=== PATIENT | female | born 1975 | race Caucasian/White ===

== ENCOUNTER → 2018-04-18 | Outpatient (CLI) | payer OTHER, MEDICARE ==
[~2018-04-18] MED LIST: ACETAMINOPHEN-1 EAC1 PO; BENTYL20 MG PO; CIPRO HC OTIC S10 ML OTIC; CIPROFLOXACIN500 M1 PO; ESTRACE2 MG PO; HYDROCODON-ACE1 EAC7 PO; LEVSIN; OPIUM10 MG/1 ML PO; PREVALITE PACKE1 PKT; QUESTRAN; ULTRAM 50MG TAB50 MG PO; VICODIN 5-5001 EACH PO; VITAMIN; WELCHOL 625 MG625 MG PO; ZOFRAN 4 MG ORAL4 M1 DIS; ZPAK PO; [UNRECOGNIZED DRUG - REMARK]
== END ==
LOC: M.CT 04-11 16:30
DX: R93.0 Abnormal findings on diagnostic imaging of skull and head, not elsewhere classified (principal); Z90.710 Acquired absence of both cervix and uterus; Z90.49 Acquired absence of other specified parts of digestive tract

== ENCOUNTER 2018-04-22 05:56 | Emergency (ER) | payer OTHER, MEDICARE ==
[~2018-04-22] VITALS: Ht 165.1 cm; Wt 96.6 kg
[~2018-04-22 05:56] MED LIST changes: -CIPRO HC OTIC S10 ML OTIC
[2018-04-22 06:01] VITALS: BP 152/93
[2018-04-22] MEDS ORDERED: CIPRO HC OTIC S10 ML OTIC (06:15)
[2018-04-22] MEDS ORDERED: ACETAMINOPHEN-1 EAC1 PO (06:15)
== END 2018-04-22 06:25 | disposition home or self-care (01) ==
LOC: M.ERS 05:56
DX: H66.91 Otitis media, unspecified, right ear (principal); K58.9 Irritable bowel syndrome, unspecified; F17.210 Nicotine dependence, cigarettes, uncomplicated; Z88.1 Allergy status to other antibiotic agents; Z88.6 Allergy status to analgesic agent; Z91.040 Latex allergy status; Z88.8 Allergy status to other drugs, medicaments and biological substances; Z91.018 Allergy to other foods; Z90.49 Acquired absence of other specified parts of digestive tract; Z90.710 Acquired absence of both cervix and uterus

== ENCOUNTER 2019-01-16 17:16 | Emergency (ER) | payer OTHER, MEDICARE ==
[~2019-01-16] VITALS: Ht 165.1 cm; Wt 99.8 kg
[~2019-01-16 17:16] MED LIST changes: +CIPRO HC OTIC S10 ML OTIC
[2019-01-16] MEDS ORDERED: CIPRO HC OTIC S10 ML OTIC (18:50)
[2019-01-16] MEDS ORDERED: AZITHROMYC200 MG/52 PO (19:26)
[2019-01-16 19:38] VITALS: BP 148/92
== END 2019-01-16 19:39 | disposition home or self-care (01) ==
LOC: M.ERS 17:16
DX: H72.91 Unspecified perforation of tympanic membrane, right ear (principal); H60.91 Unspecified otitis externa, right ear; K58.9 Irritable bowel syndrome, unspecified; Z88.1 Allergy status to other antibiotic agents; Z91.040 Latex allergy status; Z88.8 Allergy status to other drugs, medicaments and biological substances; Z91.018 Allergy to other foods; Z90.49 Acquired absence of other specified parts of digestive tract; Z90.710 Acquired absence of both cervix and uterus

== ENCOUNTER 2019-06-02 12:23 | Inpatient (IN) | payer OTHER, MEDICARE ==
[~2019-06-02] VITALS: Ht 165.1 cm; Wt 102.5 kg
[~2019-06-02 12:23] MED LIST changes: +AZITHROMYC200 MG/52 PO; +BENTYL 20 MG TA20 M1 PO; -LEVSIN; +LEVSIN0.125 MG PO; +OPIUM TINC10 MG/1 M1 PO; -OPIUM10 MG/1 ML PO; -PREVALITE PACKE1 PKT; +PREVALITE PACKET4 GM PO
[2019-06-02 12:37] VITALS: BP 154/95
[2019-06-02 13:10] LABS: ABSOLUTE BASOPHILS 0.1 thou/uL (0.0-0.2); ABSOLUTE EOSINOPHILS 0.2 thou/uL (0.0-0.7); ABSOLUTE LYMPHOCYTES 5.2 thou/uL (0.8-5.3); ABSOLUTE MONOCYTES 0.9 thou/uL (0.0-1.2); ABSOLUTE NEUTROPHILS 10.2 thou/uL (1.6-8.1); BASOPHILS 0.7 %; EOSINOPHILS 0.9 %; HEMATOCRIT 47.6 % (37.0-47.0); HEMOGLOBIN 16.5 gm/dL (12.0-15.0); LYMPHOCYTES 31.2 %; MCH 32.6 pg (26.0-34.0); MCHC 34.7 g/dL (28.0-37.0); MCV 94.1 fL (80.0-100.0); MONOCYTES 5.5 %; MPV 9.2 fl. (7.2-11.1); NUCLEATED RBCS 0 /100WBC; PLATELET COUNT* 316 thou/uL (150-400); POLYS 61.7 %; RBC 5.06 mil/uL (4.20-5.00); RDW-CV 13.8 % (10.5-14.5); WBC 16.6 thou/uL (4.0-11.0)
[2019-06-02 13:25] LABS: ALBUMIN 4.2 g/dL (3.4-5.0); CALCIUM 9.3 mg/dL (8.5-10.1); CREATININE 0.9 mg/dL (0.6-1.3); POTASSIUM 3.4 mmol/L (3.5-5.1); TOTAL BILIRUBIN 0.5 mg/dL (<0.1-1.0)
--- NOTE | 2019-06-02 14:56 | NUR ---
ABUNDIO NOTIFIED UPON PT RETURN FROM CT. PT WAS NOT CONNECTED TO MONITOR SHE WAS NOT CONNECTED PRIOR TO GOING TO CT
[2019-06-02 17:26] VITALS: BP 115/80
[2019-06-02 17:31] LABS: URINE BILIRUBIN NEGATIVE (Negative); URINE BLOOD NEGATIVE (Negative); URINE CLARITY CLEAR; URINE COLOR YELLOW; URINE GLUCOSE-RANDOM NEGATIVE (Negative); URINE KETONES NEGATIVE (Negative); URINE LEUKOCYTES-REFLEX NEGATIVE (Negative); URINE NITRITE-REFLEX NEGATIVE (Negative); URINE PROTEIN NEGATIVE (Negative); URINE UROBILINOGEN 0.2 E.U./dl (0.2-1.0)
[2019-06-02 20:30] VITALS: BP 117/66
--- NOTE | 2019-06-02 20:30 | NUR ---
TO ROOM PER BED FROM PACU, RECEIVED REPORT AND ASSUMED CARE OF PT. LETHARGIC BUT ORIENTED X4. O2 ON 4L/NC WITH CONT PULSE OX SHOWING 94-96%. 2X2 DRSG DRY AND INTACT TO UMBILICUS. DISCUSSED WITH PT ABD PAIN AND POSS SHOULDER PAIN DUE TO GAS USED TO INFLATE ABD FOR SURGERY. TELEMETRY APPLIED SHOWING SR. SEE ADMISSION ASSESSMENT AND HX. AT BEDSIDE.
[2019-06-02 22:11] LABS: HEMATOCRIT 41.7 % (37.0-47.0); MCH 32.1 pg (26.0-34.0); MCHC 33.8 g/dL (28.0-37.0); MCV 94.8 fL (80.0-100.0); MPV 8.8 fl. (7.2-11.1); RBC 4.39 mil/uL (4.20-5.00); RDW-CV 13.6 % (10.5-14.5); WBC 17.8 thou/uL (4.0-11.0)
[2019-06-02 22:13] LABS: HEMOGLOBIN 14.1 gm/dL (12.0-15.0)
[2019-06-02 22:17] LABS: CALCIUM 8.2 mg/dL (8.5-10.1); CREATININE 0.9 mg/dL (0.6-1.3)
--- NOTE | 2019-06-02 23:00 | NUR ---
ASSISTED TO BR X2. MOVING SLOW AND HOLDING ONTO FURNITURE. ONLY ABLE TO VOID APPROX 60 CC EACH TIME. STATES SHE FEELS LIKE SHE IS EMPTYING BLADDER. IV PAIN MED GIVEN REQUESTED. EARLIER CHANGED TIMES OF CROHNS MEDS ACCORDING TO HOW SHE TAKES THEM AT HOME. MOTHER STAYING AT BEDSIDE.
[2019-06-03 00:38] VITALS: BP 106/55
[2019-06-03 04:30] VITALS: BP 103/55
[2019-06-03 04:56] LABS: ALBUMIN 3.2 g/dL (3.4-5.0); CALCIUM 8.5 mg/dL (8.5-10.1); CREATININE 0.8 mg/dL (0.6-1.3); MAGNESIUM 2.1 mg/dL (1.8-2.4); TOTAL BILIRUBIN 0.4 mg/dL (<0.1-1.0); TOTAL PROTEIN 6.6 g/dL (6.4-8.2)
--- NOTE | 2019-06-03 06:49 | NUR ---
SLEPT WELL TONIGHT. ASSISTED TO AND FROM BR. CONT TO VOID IN SMALL AMTS. PO PAIN MED GIVEN AND EFFECTIVE FOR ABD PAIN. TELEMETRY CONT TO SHOW SR. NO CHANGE IN ASSESSMENT. ACHIEVED HS GOALS OF REST AND SAFETY. HOURLY ROUNDING OBSERVED.
[2019-06-03 07:41] LABS: HEMATOCRIT 41.5 % (37.0-47.0); HEMOGLOBIN 13.8 gm/dL (12.0-15.0); MCH 31.8 pg (26.0-34.0); MCHC 33.4 g/dL (28.0-37.0); MCV 95.2 fL (80.0-100.0); MPV 10.1 fl. (7.2-11.1); RBC 4.35 mil/uL (4.20-5.00); RDW-CV 13.7 % (10.5-14.5); WBC 21.5 thou/uL (4.0-11.0)
[2019-06-03 08:12] VITALS: BP 109/63
--- NOTE | 2019-06-03 10:01 | OP ---
[address] [address] OPERATIVE REPORT Name: LORIN MIXON Room: [place] [address] ADM IN .R.#: [id number] Admission: 06/02/19 Attend Phys: Cynthia Piña MD Discharge: Date of : 79 Report #: [id number] THIS REPORT FOR: //name// CC: Jose Tee DO Cynthia Piña DICTATED BY: Ameya Sepulveda DO DATE OF SERVICE: 06/02/2019 PREOPERATIVE DIAGNOSES: Acute appendicitis, history of Crohn's disease, history of Clostridium Difficile. POSTOPERATIVE DIAGNOSES: Acute appendicitis, history of Crohn's disease, history of Clostridium Difficile. PROCEDURE PERFORMED: Laparoscopic appendectomy. SURGEON: Zari Perea DO CO-SURGEON: Ameya Sepulveda, PGY-3. SUPERVISOR CUTTING AND BONING: Gibson MS3. ANESTHESIA: General and local. SPECIMEN: Appendix. ESTIMATED BLOOD LOSS: 30. FINDINGS: Mild early acute appendicitis with localized peritonitis. COMPLICATIONS: None. HISTORY OF PRESENT ILLNESS: The patient is a 44-year-old female with recent history of bloody diarrhea and right lower quadrant abdominal pain. She does have a history of Crohn's disease and not currently taking any biologic medications. She also has a history of C. diff. Upon presentation, CT scan did reveal possible early acute appendicitis. No evidence of terminal ileitis. The option was given to closely watch and have GI consultation versus proceed with a laparoscopic appendectomy. She elected to proceed with laparoscopic appendectomy. Her risks, complications, benefits, and alternatives were discussed at length and she agreed to proceed with surgery. DESCRIPTION OF PROCEDURE: After consent was obtained, [place] [address] OPERATIVE REPORT Name: LORIN MIXON Room: [address] IN [facility].#: [id number] Admission: 06/02/19 Attend Phys: Cynthia Piña MD Discharge: Date of : 79 Report #: [id number] the operating room and placed in supine position. SCDs applied to bilateral lower extremities, safety belt placed across the patient's waist. Two grams of Ancef given for surgical prophylaxis. General anesthesia was administered without any complication. The patient was then prepped and draped in the standard sterile fashion. Timeout was performed to confirm the patient and procedure. An 11 blade scalpel was used to make an infraumbilical incision in transverse fashion. Electrocautery was used for hemostasis. S retractors were used to bluntly dissect down to the level of the fascia. Once fascia was encountered, it was grasped between 2 Kochers and elevated. Electrocautery was used to score the fascia and hemostat was used to bluntly enter the peritoneum. Finger sweep was performed to confirm no intraabdominal adhesions. Two stitches of 0 Vicryl placed on either side of the fascia. An 11 mm Juan Luis trocar was inserted into the abdomen. Insufflation was initiated without any complication. Camera was placed into the abdomen. Intraabdominal contents were inspected. The patient was placed in Trendelenburg and rotated towards the left. A second 5 mm trocar was placed in the left lower quadrant under direct visualization and one suprapubic under direct visualization. The cecum was easily seen and this was retracted medially. The appendix could be seen laterally adhered to the anterior abdominal wall dissection. The appendix was freed up from its lateral attachments using hook electrocautery. Once the appendix was free, attention was turned towards the base of the appendix. [place] dissector was used to create a window just underneath the base of the appendix. Once a window was created, a 45 purple load Endo-JENNIFER stapler was used to go across the base of the appendix. Two more 45 purple load staplers were used to go across the mesoappendix. There were some small areas of bleeding along the staple line. These were cauterized with hook electrocautery. Once hemostasis was completely ensured, the appendix was placed in laparoscopic EndoCatch bag. Staple lines were inspected carefully. The right lower quadrant was irrigated and all fluid was suctioned out. There was no evidence of bleeding at this time. Insufflation was let down slowly, and again the staple line was inspected. There was no evidence of bleeding. All trocars were removed under direct visualization. The appendix and its contents were removed from the infraumbilical trocar site. All insufflation was released. Infraumbilical fascia was closed with 1 stitch of 0 Vicryl in a hdabpp-wy-xdspe fashion. All skin incisions were closed with 4-0 Monocryl. Sterile dressings were applied over top. All counts were correct at the end of the case. The patient was awoken from general anesthesia and transferred to PACU in stable condition. <ELECTRONICALLY SIGNED> By: Zari Perea DO 06/03/19 1001 39 [id number] Perea DO /nt
--- NOTE | 2019-06-03 12:00 | NUR ---
MET WITH PT TO DISCUSS HOME SITUATION/DC PLANNING. PT LIVES WITH SPOUSE AND TEENAGE SON. SHE IS INDEPENDENT. USES NO EQUIPMENT. LINDA ANY DC NEEDS. HOPES TO GO HOME SOON, STATES FEELING IMPROVED. WILL FOLLOW
[2019-06-03 12:11] VITALS: BP 116/61
--- NOTE | 2019-06-03 14:20 | NUR ---
VSS, ASSUMED CARE IN THE AM, ASSESSMENT PERFORMED AND CHARTED, FALL PRECAUTIONS IN PLACE AND CALL LIGHT IN REACH, PT IS A&O4 AND UP AD [place], PT IS TRACING SR, BUT IS NOW MEDSURG STATUS, PT STTAES PAIN IN ABD, SHE IS ON RA, AND REMAINS IN ISO PRECAUTIONS FOR C-DIFF. WILL FOLLOW WITH PLAN OF CARE.
[2019-06-03] MEDS ORDERED: VANCOCIN 125 M125 M1 PO (16:34)
[2019-06-03 17:51] VITALS: BP 116/61
--- NOTE | 2019-06-03 18:05 | NUR ---
VSS, PROVITED D/C ORDERS, PROVITED DISCHARGE INSTRUCTIONS, PRESCRIPTS E-SENT TO PHARMACY, PT IV AND TELE MONITOR TAKEN OFF, PT DENIES ANY QUESTIONS OR CONCERNS AT TIME OF D/C PT WALKED OUT BY STAFF TO CAR.
--- NOTE | 2019-06-05 14:07 | PATH ---
[address] [address] PATHOLOGY RPT PROCEDURE Name: LINDA MIXON Room: [address] IN [facility].#: [id number] Admission: 06/02/19 Date of : 79 Discharge: 06/03/19 Report #: [id number] Path Case #: [id number] [facility] Accession Number: [id number] . 01 Material submitted: . appendix - APPENDIX . 01 Clinical history: . Appendicitis. . 02 Diagnosis: Appendix: - Early acute appendicitis and serositis. (SHENA/db; 06/05/2019) LBQ 06/05/2019 1315 Local . 02 Electronically signed: . Chad Champagne MD, Pathologist NPI- [id number] . 01 Gross description: . Received in formalin labeled "Linda Mixon, appendix" is an appendectomy specimen measuring 15.5 cm in length and 1.3 cm in diameter. The proximal margin is closed with a staple line. A scant amount of mesoappendix runs the length of the specimen. The serosa is pink-tinajero and focally hemorrhagic. The specimen is sectioned to reveal that the lumen is filled with compacted fecal material. The luminal diameter ranges from 0.6-0.8 cm. Perforations are not present. Button Breaker Operator sections are submitted as follows: A1 proximal margin (inked black) and one half of the distal tip A2 operations support representative cross sections of mid appendix ([facility] [place]; 06/03/2019) . After initial microscopic examination the remainder of the appendix is submitted in A3-A14. (SD; 06/04/2019) [facility] 06/04/2019 1533 Local . 02 Pathologist provided ICD-10: K35.80 . 02 CPT . 377308 Specimen Comment: A courtesy copy of this report has been sent to [phone], [phone] Specimen Comment: [id number] Specimen Comment: Report sent to and Performed at: [address] [place] [address] PATHOLOGY RPT PROCEDURE Name: LINDA MIXON Room: [address] IN ..#: [id number] Admission: 06/02/19 Date of : 79 Discharge: 06/03/19 Report #: [id number] Path Case #: [id number] [address] [facility] [address], [place]urto [id number] MD Gómez Mena MD Phone: [phone] Performed at: [address] [place] Black [id number] MD Chad Champagne MD Phone: [phone]
--- NOTE | 2019-06-09 19:22 | CON ---
[facility] [address] [place] [address] CONSULTATION Name: ORALLORIN L Room: [address] IN M.R.#: [id number] Admission: 06/02/19 Attend Phys: Cynthia Piña MD Discharge: 06/03/19 Date of : 79 Report #: [id number] THIS REPORT FOR: //name// CC: Socrates Piña DATE OF SERVICE: 06/03/2019 REASON FOR CONSULTATION: Rectal bleeding. IMPRESSION: 1. Acute lower abdominal pain associated with bloody diarrhea - suspect possible ischemic colitis versus Clostridium difficile colitis versus other causes. 2. Chronic diarrhea related to severe irritable bowel syndrome - the patient does not have any history of inflammatory bowel disease including ulcerative colitis or Crohn's. 3. Status post recent appendectomy yesterday for early appendicitis. 4. Social anxiety. 5. Chronic tobaccoism. RECOMMENDATIONS: 1. Since the patient is feeling fine, is no longer having severe diarrhea, abdominal pain or bleeding, she wants to go home and I have okayed to the same. I have given her prescription for vancomycin 125 mg q.i.d. to be given for the next 14 days and she is agreeable to this plan. 2. She can resume all of her home medications for her severe IBS as well. 3. She will contact our office if she has any further issues with uncontrolled diarrhea, bleeding, etc. I have discussed the plans with the patient as well and she is agreeable to the same. HISTORY OF PRESENT ILLNESS: The patient is a very pleasant 44-year-old white female with longstanding history of severe irritable bowel, for which she is on a number of medications to help with the same. She came to the emergency room with complaints of lower abdominal pain, diarrhea and some rectal bleeding, but she states the bleeding was not terrible. When she came to the Emergency Room, she was seen by the Emergency Room physician and underwent a CT scan of the abdomen and pelvis, which revealed some colitis involving the left colon and possibly appendicitis. She subsequently went to surgery yesterday and had her appendix removed. She is now eating and drinking and wants to go home. She also states her diarrhea is better. 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 She is anxious for [place] [address] CONSULTATION Name: LORIN MIXON Room: [address]#: [id number] Admission: 06/02/19 Attend Phys: Cynthia Piña MD Discharge: 06/03/19 Date of : 79 Report #: [id number] ALLERGIES: CEPHALOSPORINS, KETOROLAC, LASIX, MUSHROOMS, AND TAPE. MEDICATIONS: Include Welchol, cholestyramine, dicyclomine, hyoscyamine, tincture of opium, Levsin, estradiol, famotidine. PAST MEDICAL AND SURGICAL HISTORY: Remarkable for severe irritable bowel. No history of Crohn's or ulcerative colitis; she has had a thorough evaluation regarding the same. She had previous cholecystectomy, hysterectomy, tonsillectomy, nasal surgery. She also has a history of severe social anxiety and fear of being out in public. SOCIAL HISTORY: The patient is . She smokes a pack per day, does not drink alcohol. FAMILY HISTORY: Negative. PHYSICAL EXAMINATION: GENERAL: Revealed pleasant 44-year-old white female who is awake and alert. CARDIOPULMONARY: Revealed a regular rate and rhythm. LUNGS: Clear. ABDOMEN: Soft. She is minimally tender in lower quadrants. No rebound or guarding noted. DISCUSSION: At the present time, the patient appears to be hemodynamically stable to be able to be discharged to home. We will give her a prescription for vancomycin, have her followup with us in several weeks how things are going. I have discussed the plans with her as well and she is agreeable to the same. <ELECTRONICALLY SIGNED> By: Jose Tee DO 06/09/191921 53 24Jose Tee DO /nt
== END 2019-06-03 18:23 | disposition home or self-care (01) | DRG 342 ==
LOC: M.ERS 12:23 → M.TBA-ER 16:19 → M.2W 16:19
PROVIDERS: Nurse Practitioner Family; Surgery; ADMIT Internal Medicine
PROC: 0DTJ4ZZ Resection of Appendix, Percutaneous Endoscopic Approach (ICD-10-PCS; principal; 2019-06-02)
DX: K35.30 Acute appendicitis with localized peritonitis, without perforation or gangrene (principal); K50.90 Crohn's disease, unspecified, without complications; K92.2 Gastrointestinal hemorrhage, unspecified; A04.72 Enterocolitis due to Clostridium difficile, not specified as recurrent; F41.9 Anxiety disorder, unspecified; Z79.899 Other long term (current) drug therapy; Z90.49 Acquired absence of other specified parts of digestive tract; Z90.710 Acquired absence of both cervix and uterus; Z88.8 Allergy status to other drugs, medicaments and biological substances; Z91.040 Latex allergy status

== ENCOUNTER 2019-08-06 04:44 | Inpatient (IN) | payer OTHER, MEDICARE ==
[~2019-08-06] VITALS: Ht 167.6 cm; Wt 99.8 kg
[~2019-08-06 04:44] MED LIST changes: +VANCOCIN 125 M125 M1 PO
[2019-08-06 04:53] VITALS: BP 156/96
[2019-08-06 05:09] LABS: URINE BILIRUBIN NEGATIVE (Negative); URINE BLOOD NEGATIVE (Negative); URINE CLARITY CLEAR; URINE COLOR YELLOW; URINE GLUCOSE-RANDOM NEGATIVE (Negative); URINE KETONES NEGATIVE (Negative); URINE LEUKOCYTES-REFLEX NEGATIVE (Negative); URINE NITRITE-REFLEX NEGATIVE (Negative); URINE PROTEIN NEGATIVE (Negative); URINE UROBILINOGEN 0.2 E.U./dl (0.2-1.0)
[2019-08-06 05:52] LABS: ABSOLUTE BASOPHILS 0.1 thou/uL (0.0-0.2); ABSOLUTE EOSINOPHILS 0.1 thou/uL (0.0-0.7); ABSOLUTE LYMPHOCYTES 2.9 thou/uL (0.8-5.3); ABSOLUTE MONOCYTES 1.1 thou/uL (0.0-1.2); ABSOLUTE NEUTROPHILS 12.7 thou/uL (1.6-8.1); BASOPHILS 0.5 %; EOSINOPHILS 0.5 %; HEMATOCRIT 45.9 % (37.0-47.0); HEMOGLOBIN 15.8 gm/dL (12.0-15.0); LYMPHOCYTES 17.4 %; MCH 32.2 pg (26.0-34.0); MCHC 34.4 g/dL (28.0-37.0); MCV 93.5 fL (80.0-100.0); MONOCYTES 6.3 %; MPV 9.2 fl. (7.2-11.1); NUCLEATED RBCS 0 /100WBC; PLATELET COUNT* 277 thou/uL (150-400); POLYS 75.3 %; RBC 4.91 mil/uL (4.20-5.00); RDW-CV 13.5 % (10.5-14.5); WBC 16.8 thou/uL (4.0-11.0)
[2019-08-06 06:01] LABS: CALCIUM 8.3 mg/dL (8.5-10.1); CREATININE 0.9 mg/dL (0.6-1.3); POTASSIUM 3.3 mmol/L (3.5-5.1)
[2019-08-06 06:05] LABS: ALBUMIN 3.7 g/dL (3.4-5.0); TOTAL BILIRUBIN 0.3 mg/dL (<0.1-1.0); TOTAL PROTEIN 7.3 g/dL (6.4-8.2)
[2019-08-06 11:33] VITALS: BP 117/71
[2019-08-06] MEDS ORDERED: ONDANSETRON HCL4 M3 PO (12:26)
[2019-08-06] MEDS ORDERED: FLAGYL500 M1 PO (12:27)
[2019-08-06 12:30] VITALS: BP 117/71
[2019-08-06 12:58] VITALS: BP 117/71
--- NOTE | 2019-08-06 13:57 | EKG ---
[place] [address] ELECTROCARDIOGRAM REPORT Name: LORIN MIXON Room: [place] [address] ADM IN .R.#: [id number] Admission: 08/06/19 Attend Phys: Raj Shah Discharge: Date of : 79 Date of Service: 08/06/19 0502 Report #: [id number] THIS REPORT FOR: cc: Jose Tee,Jose Mckeon,Bobby Zapata MD [facility] ~ THIS REPORT FOR: //name// [facility] ED Test Date: 2019-08-06 Test Time: 05:02:58 Pat Name: LORIN MIXON Department: Room: [facility] Gender: F Claim Adjuster: : 1975 Requested By: Jeremías Abraham Order Number: [id number] : Bobby Hylton Measurements Intervals [place] Rate: 110 P: 40 MI: 174 QRS: 123 QRSD: 104 T: -2 QT: 342 QTc: 463 Interpretive Statements Sinus tachycardia Left posterior fascicular block Abnormal R-wave progression, late transition possible anterior scar Borderline T abnormalities, inferior leads No previous ECG available for comparison Electronically Signed On 08-06-2019 10:05:48 BLEACH MACHINE OPERATOR by Bobby Hylton [email or web address] <ELECTRONICALLY SIGNED> By: Bobby Hylton MD, [facility] 08/06/19 1005 1 1 Bobby Hylton MD, [facility] /EPI
== END 2019-08-06 12:35 | disposition left against medical advice (07) | DRG 386 ==
LOC: M.ERS 04:44 → M.TBA-ER 07:03
PROVIDERS: Family Medicine; ADMIT Internal Medicine
DX: K50.911 Crohn's disease, unspecified, with rectal bleeding (principal); E87.2 Acidosis; K52.9 Noninfective gastroenteritis and colitis, unspecified; F17.210 Nicotine dependence, cigarettes, uncomplicated; Z90.49 Acquired absence of other specified parts of digestive tract; Z90.710 Acquired absence of both cervix and uterus; Z79.899 Other long term (current) drug therapy; Z88.8 Allergy status to other drugs, medicaments and biological substances; Z88.1 Allergy status to other antibiotic agents; Z91.040 Latex allergy status; Z91.018 Allergy to other foods; Z91.048 Other nonmedicinal substance allergy status

== ENCOUNTER → 2019-08-12 | Outpatient (CLI) | payer OTHER, MEDICARE ==
[~2019-08-12] MED LIST changes: +FLAGYL500 M1 PO; +ONDANSETRON HCL4 M3 PO
== END ==
LOC: M.ULTRA 08:53
DX: K76.89 Other specified diseases of liver (principal); E27.8 Other specified disorders of adrenal gland; R16.0 Hepatomegaly, not elsewhere classified; Z90.49 Acquired absence of other specified parts of digestive tract

== ENCOUNTER 2019-11-20 14:27 | Emergency (ER) | payer OTHER, MEDICARE ==
[~2019-11-20] VITALS: Ht 167.6 cm; Wt 81.7 kg
[2019-11-20 14:40] LABS: URINE BILIRUBIN NEGATIVE (Negative); URINE BLOOD 3+ (Negative); URINE CLARITY SL CLOUDY; URINE COLOR YELLOW; URINE GLUCOSE-RANDOM NEGATIVE (Negative); URINE KETONES NEGATIVE (Negative); URINE PROTEIN TRACE (Negative); URINE SPECIFIC GRAVITY 1.015 (1.005-1.030); URINE UROBILINOGEN 0.2 E.U./dl (0.2-1.0)
[2019-11-20 14:41] LABS: URINE LEUKOCYTES-REFLEX 3+ (Negative); URINE NITRITE-REFLEX POSITIVE (Negative)
[2019-11-20 14:55] LABS: BACTERIA-REFLEX >30 Many /HPF (None Seen); CASTS None Seen /LPF (None Seen); CRYSTALS None Seen /LPF (None Seen); SQUAMOUS 0-3 Few /LPF (0-3); URINE RBC 3-10 Few /HPF (0-2); URINE WBC-REFLEX 6-15 Few /HPF (0-5)
[2019-11-20] MEDS ORDERED: MACROBID 100 M100 MG PO (14:56)
[2019-11-20 15:00] VITALS: BP 126/81
== END 2019-11-20 15:00 | disposition home or self-care (01) ==
LOC: M.ERS 14:27
PROVIDERS: Physician Assistant
DX: N39.0 Urinary tract infection, site not specified (principal); K50.90 Crohn's disease, unspecified, without complications; Z88.6 Allergy status to analgesic agent; Z91.040 Latex allergy status; Z88.1 Allergy status to other antibiotic agents; Z91.018 Allergy to other foods; Z88.8 Allergy status to other drugs, medicaments and biological substances; Z90.49 Acquired absence of other specified parts of digestive tract; Z90.710 Acquired absence of both cervix and uterus

== ENCOUNTER → 2019-12-05 | Outpatient (CLI) | payer OTHER, MEDICARE ==
[~2019-12-05] MED LIST changes: +MACROBID 100 M100 MG PO
== END ==
LOC: M.ULTRA 07:45
PROVIDERS: ATTEND Family Medicine
DX: N30.01 Acute cystitis with hematuria (principal)

== ENCOUNTER 2020-03-21 04:15 | Emergency (ER) | payer OTHER, MEDICARE ==
[~2020-03-21] VITALS: Ht 167.6 cm; Wt 81.7 kg
[2020-03-21] MEDS ORDERED: CHLORTHALIDONE25 MG PO (04:31)
[2020-03-21 04:51] LABS: ABSOLUTE BASOPHILS 0.1 thou/uL (0.0-0.2); ABSOLUTE EOSINOPHILS 0.1 thou/uL (0.0-0.7); ABSOLUTE LYMPHOCYTES 4.3 thou/uL (0.8-5.3); ABSOLUTE MONOCYTES 1.3 thou/uL (0.0-1.2); BASOPHILS 0.4 %; EOSINOPHILS 0.5 %; HEMATOCRIT 49.9 % (37.0-47.0); HEMOGLOBIN 17.7 gm/dL (12.0-15.0); LYMPHOCYTES 24.4 %; MCH 32.9 pg (26.0-34.0); MCHC 35.4 g/dL (28.0-37.0); MCV 92.7 fL (80.0-100.0); MONOCYTES 7.1 %; MPV 8.7 fl. (7.2-11.1); NUCLEATED RBCS 0 /100WBC; PLATELET COUNT* 323 thou/uL (150-400); POLYS 67.6 %; RBC 5.38 mil/uL (4.20-5.00); RDW-CV 13.3 % (10.5-14.5); WBC 17.7 thou/uL (4.0-11.0)
[2020-03-21 05:01] LABS: CALCIUM 9.5 mg/dL (8.5-10.1); CREATININE 1.1 mg/dL (0.6-1.3); POTASSIUM 3.1 mmol/L (3.5-5.1)
[2020-03-21 05:04] LABS: PROTIME 10.7 Seconds (9.20-11.50)
[2020-03-21 05:11] LABS: ALBUMIN 4.5 g/dL (3.4-5.0); TOTAL BILIRUBIN 0.6 mg/dL (<0.1-1.0); TOTAL PROTEIN 8.4 g/dL (6.4-8.2)
[2020-03-21 05:56] LABS: URINE BILIRUBIN NEGATIVE (Negative); URINE BLOOD NEGATIVE (Negative); URINE CLARITY CLEAR; URINE COLOR YELLOW; URINE GLUCOSE-RANDOM NEGATIVE (Negative); URINE KETONES NEGATIVE (Negative); URINE LEUKOCYTES-REFLEX NEGATIVE (Negative); URINE NITRITE-REFLEX NEGATIVE (Negative); URINE PROTEIN NEGATIVE (Negative); URINE SPECIFIC GRAVITY <= 1.005 (1.005-1.030); URINE UROBILINOGEN 0.2 E.U./dl (0.2-1.0)
[2020-03-21 07:01] VITALS: BP 110/71
--- NOTE | 2020-03-22 14:15 | EKG ---
[place] [address] ELECTROCARDIOGRAM REPORT Name: SINAICORRINALORIN Room: [facility]#: [id number] Admission: 03/21/20 Attend Phys: Discharge: 03/21/20 Date of : 79 Date of Service: 03/21/20 0422 Report #: [id number] THIS REPORT FOR: //name// [facility] ED Test Date: 2020-03-21 Test Time: 04:22:17 Pat Name: LORIN MIXON Department: Room: Gender: F Bedspread Cutter Hand: : 1975 Requested By: Lisa Mays Order Number: [id number] MD: Bobby Hylton Measurements Intervals [place] Rate: 137 P: 64 NC: 151 QRS: 178 QRSD: 100 T: -50 QT: 290 QTc: 438 Interpretive Statements Sinus tachycardia Consider right ventricular hypertrophy Baseline wander in lead(s) II,III,aVF Compared to ECG 08/06/2019 05:02:58 Right axis deviation first T-wave abnormality no longer present Electronically Signed On 03-22-2020 14:15:26 CDT by Bobby Hylton [email or web address] <ELECTRONICALLY SIGNED> By: Bobby Hylton MD, FACC 03/22/20 1415 042 0422 Bobby Hylton MD, FAC /EPI
== END 2020-03-21 07:06 | disposition home or self-care (01) ==
LOC: M.ERS 04:15
PROVIDERS: Personal Emergency Response Attendant
DX: I16.0 Hypertensive urgency (principal); F41.9 Anxiety disorder, unspecified; Z91.040 Latex allergy status; Z88.1 Allergy status to other antibiotic agents; Z88.8 Allergy status to other drugs, medicaments and biological substances; Z91.018 Allergy to other foods; Z79.899 Other long term (current) drug therapy; Z90.49 Acquired absence of other specified parts of digestive tract; Z90.710 Acquired absence of both cervix and uterus

== ENCOUNTER 2020-04-14 22:39 | Inpatient (IN) | payer OTHER, MEDICARE ==
[~2020-04-14] VITALS: Ht 165.1 cm; Wt 81.6 kg
[~2020-04-14 22:39] MED LIST changes: +CHLORTHALIDONE25 MG PO
[2020-04-14 22:53] VITALS: BP 145/96
[2020-04-14 23:11] LABS: HEMATOCRIT 48.7 % (37.0-47.0); HEMOGLOBIN 16.6 gm/dL (12.0-15.0); MCH 32.1 pg (26.0-34.0); MCHC 34.2 g/dL (28.0-37.0); MCV 93.9 fL (80.0-100.0); MPV 8.5 fl. (7.2-11.1); NUCLEATED RBCS 0 /100WBC; PLATELET COUNT* 333 thou/uL (150-400); RBC 5.18 mil/uL (4.20-5.00); RDW-CV 13.4 % (10.5-14.5); WBC 20.7 thou/uL (4.0-11.0)
[2020-04-14 23:19] LABS: CALCIUM 9.6 mg/dL (8.5-10.1); CREATININE 1.1 mg/dL (0.6-1.3); POTASSIUM 3.2 mmol/L (3.5-5.1)
[2020-04-14 23:20] LABS: URINE BLOOD NEGATIVE (Negative); URINE CLARITY CLEAR; URINE COLOR DARK YELLOW; URINE GLUCOSE-RANDOM NEGATIVE (Negative); URINE KETONES TRACE (Negative); URINE LEUKOCYTES-REFLEX NEGATIVE (Negative); URINE NITRITE-REFLEX NEGATIVE (Negative); URINE PROTEIN NEGATIVE (Negative); URINE SPECIFIC GRAVITY >= 1.030 (1.005-1.030); URINE UROBILINOGEN 0.2 E.U./dl (0.2-1.0)
[2020-04-14 23:21] LABS: ICTOTEST (BILI CONFIRMATORY) Negative (Negative); URINE BILIRUBIN 1+ (Negative)
[2020-04-14 23:23] LABS: ALBUMIN 3.8 g/dL (3.4-5.0); TOTAL BILIRUBIN 0.2 mg/dL (<0.1-1.0); TOTAL PROTEIN 7.9 g/dL (6.4-8.2)
[2020-04-15 00:32] LABS: ABSOLUTE LYMPHOCYTES 3.9 thou/uL (0.8-5.3); ABSOLUTE MONOCYTES 1.9 thou/uL (0.0-1.2); ABSOLUTE NEUTROPHILS 14.9 thou/uL (1.6-8.1); PLATELET ESTIMATE ADEQUATE
[2020-04-15 02:10] VITALS: BP 126/80
[2020-04-15 03:58] VITALS: BP 109/68
[2020-04-15 07:50] VITALS: BP 114/66
--- NOTE | 2020-04-15 10:49 | EKG ---
[place] [address] ELECTROCARDIOGRAM REPORT Name: ORALLORIN Nakita Room: [address] ADM IN M.R.#: [id number] Admission: 04/15/20 Attend Phys: Raj Shah Discharge: Date of : 79 Date of Service: 04/14/20 2326 Report #: [id number] THIS REPORT FOR: //name// [facility] ED Test Date: 2020-04-14 Test Time: 23:26:32 Pat Name: LORIN MIXON Department: Room: [facility] Gender: F Neurology Tech: MORALES : 1975 Requested By: Jeremías Abraham Order Number: [id number] MD: Milton Joy Measurements Intervals [place] Rate: 116 P: MT: QRS: 96 QRSD: 112 T: 25 QT: 412 QTc: 573 Interpretive Statements Junctional tachycardia, rightward axis consider left posterior fascicular block, nonspecific ST changes, prolonged QT interval, compared to the prior EKG the junctional tachycardia is new. Previously the patient was in sinus tachycardia Electronically Signed On 04-15-2020 10:49:20 CDT by Milton Joy [email or web address] <ELECTRONICALLY SIGNED> By: Adonis Joy MD, FACC 04/15/20 1049 2326 2326 Adonis Joy MD, FACJaswinder /EPI
[2020-04-15 22:21] VITALS: BP 128/76
[2020-04-16 08:00] VITALS: BP 129/80
[2020-04-16] MEDS ORDERED: FIRVANQ50 MG/1 ML PO (10:01)
[2020-04-16] MEDS ORDERED: FLAGYL500 M1 PO (10:02)
[2020-04-16 10:17] VITALS: BP 129/80
== END 2020-04-16 11:35 | disposition home or self-care (01) | DRG 372 ==
LOC: M.ERS 22:39 → M.ORTHSURG 04-15 00:42 → M.TBA-ER 04-15 00:42 → M.ORTHSURG 04-15 02:17
PROVIDERS: Family Medicine; ADMIT Internal Medicine; ATTEND Internal Medicine
DX: A04.72 Enterocolitis due to Clostridium difficile, not specified as recurrent (principal); K50.90 Crohn's disease, unspecified, without complications; F17.210 Nicotine dependence, cigarettes, uncomplicated; E87.6 Hypokalemia; F41.9 Anxiety disorder, unspecified; Z20.828 Contact with and (suspected) exposure to other viral communicable diseases; Z90.49 Acquired absence of other specified parts of digestive tract; Z90.710 Acquired absence of both cervix and uterus; Z79.899 Other long term (current) drug therapy; Z88.1 Allergy status to other antibiotic agents; Z91.040 Latex allergy status; Z88.8 Allergy status to other drugs, medicaments and biological substances; Z91.018 Allergy to other foods; Z91.09 Other allergy status, other than to drugs and biological substances

== ENCOUNTER → 2020-07-30 | Outpatient (CLI) | payer OTHER, MEDICARE ==
[~2020-07-30] MED LIST changes: +FIRVANQ50 MG/1 ML PO
== END ==
LOC: M.ULTRA 12:45
PROVIDERS: ATTEND Family Medicine
DX: I73.89 Other specified peripheral vascular diseases (principal)

== ENCOUNTER → 2021-07-12 | Outpatient (CLI) | payer OTHER | LOC: M.NUC 07:05 | PROVIDERS: ATTEND Internal Medicine Gastroenterology | DX: R11.0 Nausea (principal); R68.81 Early satiety; R63.4 Abnormal weight loss ==